=== PATIENT | male | born 1990 | race Caucasian/White ===

== ENCOUNTER 2017-02-14 14:09 | Emergency (ER) | payer SELFPAY ==
--- NOTE | 2017-02-14 14:43 | ER Document Report ---
ED Medical Screen (RME) - General Stated Complaint: POSSIBLE FLU SYMPTOMS Notes: Patient complains of fever, congestion, and sore throat that started Friday night. Patient states he was exposed to the flu. I have greeted and performed a rapid initial assessment of this patient. A comprehensive ED assessment and evaluation of the patient, analysis of test results and completion of the medical decision making process will be conducted by additional ED providers. - Related Data Allergies/Adverse Reactions: No Known Allergies Allergy (Verified 02/14/17 14:43) Past Medical History Past Surgical History: Reports: Hx Appendectomy Physical Exam - Vital signs Vitals: Temp Pulse Resp BP Pulse Ox 99.1 F 92 18 99/71 L 97 02/14/17 14:36 02/14/17 14:36 02/14/17 14:36 02/14/17 14:36 02/14/17 14:36 - HEENT Notes: Throat with mild erythema. Course - Vital Signs Vital signs: Temp Pulse Resp BP Pulse Ox 99.1 F 92 18 99/71 L 97 02/14/17 14:36 02/14/17 14:36 02/14/17 14:36 02/14/17 14:36 02/14/17 14:36
--- NOTE | 2017-02-14 16:46 | ER Document Report ---
HPI - HPI Patient complains to provider of: cough fever body aches Onset: Other - Mode Friday Onset/Duration: Gradual Pain Level: 4 Context: 26-year-old male with cough fever body aches since Friday. Influenza B is positive it was done in triage. Rapid strep is negative. Vomited yesterday. No diarrhea . no chest pain or shortness of breath. No abdominal pain. Associated Symptoms: None Exacerbated by: Denies Relieved by: Denies Similar symptoms previously: No Recently seen / treated by doctor: No - ROS ROS below otherwise negative: Yes Systems Reviewed and Negative: Yes All other systems reviewed and negative - DERM Skin Color: Normal Past Medical History - General Information source: Patient - Social History Smoking Status: Never Smoker Chew tobacco use (# tins/day): No Frequency of alcohol use: None Drug Abuse: None Lives with: Spouse/Significant other Family History: None Patient has suicidal ideation: No Patient has homicidal ideation: No - Medical History Medical History: Negative Renal/ Medical History: Denies: Hx Peritoneal Dialysis Past Surgical History: Reports: Hx Appendectomy Vertical Provider Document - CONSTITUTIONAL Agree With Documented VS: Yes Exam Limitations: No Limitations - INFECTION CONTROL TRAVEL OUTSIDE OF THE [place] IN LAST 30 DAYS: No - HEENT HEENT: Atraumatic, Normocephalic, Pharyngeal Erythema. negative: Conjuctival Injection, Tympanic Membrane Red, Tympanic Membrane Bulging Notes: nares red - NECK Neck: Supple. negative: Lymphadenopathy-Left, Lymphadenopathy-Right - RESPIRATORY Respiratory: Breath Sounds Normal, No Respiratory Distress O2 Sat by Pulse Oximetry: 97 - CARDIOVASCULAR Cardiovascular: Regular Rate, Regular Rhythm - GI/ABDOMEN Gastrointestinal: Abdomen Soft, Abdomen Non-Tender, No Organomegaly - MUSCULOSKELETAL/EXTREMETIES Musculoskeletal/Extremeties: MAEW, FROM - NEURO Level of Consciousness: Awake, Alert - DERM Integumentary: Warm, Dry, No Rash Course - Vital Signs Vital signs: Temp Pulse Resp BP Pulse Ox 99.1 F 92 18 99/71 L 97 02/14/17 14:36 02/14/17 14:36 02/14/17 14:36 02/14/17 14:36 02/14/17 14:36 Discharge - Discharge Clinical Impression: influenza B Condition: Good Disposition: HOME, SELF-CARE Instructions: Acetaminophen, Influenza ([facility]) [id number], Use of Over-The- Counter Ibuprofen ([facility]) Additional Instructions: to er if worse Plenty of fluids Rest Coolmist humidifier Antibiotic ointment to your nose Please complete the patient satisfaction survey if you get one, and return it.. If you do not receive a survey, then you can go to the [facility] website, [email or web address] and place your comments about your very good care. Thank you very much. It was a pleasure being your medical provider today. Forms: Return to Work
[2017-02-14] MEDS ORDERED: IBUPROFEN 600 MG TABLET PO ONE (16:53)
[2017-02-14 17:24] VITALS: BP 120/65
== END 2017-02-14 17:29 | disposition home or self-care (01) ==
LOC: ER 14:09
DX: J11.1 Influenza due to unidentified influenza virus with other respiratory manifestations (principal); R05 Cough; R50.9 Fever, unspecified; R52 Pain, unspecified
CPT/HCPCS: 87070; 87804; 87880; 99283